=== PATIENT | female | born 1990 | race Two or more races ===

== ENCOUNTER 2017-09-23 13:18 | Emergency (ER) | payer OTHER ==
[~2017-09-23] VITALS: Ht 160 cm; Wt 76.2 kg
[2017-09-23 13:25] VITALS: BP 103/65
== END 2017-09-23 15:44 | disposition left against medical advice (07) ==
LOC: ER 13:18
DX: O44.02 Complete placenta previa NOS or without hemorrhage, second trimester (principal); O26.892 Other specified pregnancy related conditions, second trimester; T78.40XA Allergy, unspecified, initial encounter; Z3A.17 17 weeks gestation of pregnancy; X58.XXXA Exposure to other specified factors, initial encounter
CPT/HCPCS: 76805; 81025

== ENCOUNTER 2017-10-14 18:39 | Emergency (ER) | payer MEDICAID, OTHER ==
[~2017-10-14] VITALS: Ht 162.6 cm; Wt 80.3 kg
[2017-10-14 18:53] VITALS: BP 116/65
[2017-10-14] MEDS ORDERED: TRIAMCINOLONE 40MG/ML 1ML VIAL IM ONE (22:30)
== END 2017-10-14 23:39 | disposition home or self-care (01) ==
LOC: ER 18:39
DX: O26.892 Other specified pregnancy related conditions, second trimester (principal); S33.5XXA Sprain of ligaments of lumbar spine, initial encounter; M54.16 Radiculopathy, lumbar region; M79.1 Myalgia; Z3A.00 Weeks of gestation of pregnancy not specified; X58.XXXA Exposure to other specified factors, initial encounter; Y93.89 Activity, other specified; Y99.8 Other external cause status; Y92.89 Other specified places as the place of occurrence of the external cause
CPT/HCPCS: 99283; J3301